=== PATIENT | male | born 1985 | race Caucasian/White ===

== ENCOUNTER 2018-11-26 11:03 | Day surgery (SDC) | payer BC ==
[~2018-11-26 11:03] MED LIST: Buffered Lidocaine 1% SYRIN* 1 ML/SYRINGE INTRADERM ONE; Dexamethasone TAB* 4 MG PO ONE; DiMENhydriNATE IV* 50 MG/ML VIAL IV PUSH PRN; Famotidine IV* 10 MG/ML 2 ML (20 mg) IV ONE; Lactated Ringers 1000 ML Bag* 1,000 ML IV SCH; Morphine 4 MG/ML VIAL (1 ml) 4 MG/ML VIAL IV PRN; Naloxone* 0.4 MG/ML 1 ML VIAL IV PRN; Ondansetron TAB* 4 MG PO ONE; PROCHLORPERAZINE INJ 5 MG/ML 2 ML VIAL IV PRN; Scopolamine 1.5 mg* PATCH TRANSDERM PRN
[2018-11-26] MEDS ORDERED: Ondansetron ODT TAB* 4 MG ONE (11:14)
[2018-11-26] MEDS ORDERED: ceFAZolin 2 GM PREMIX in ORs 2 GM/50 ML BAG IVPB ONE (11:15)
[2018-11-26] MEDS ORDERED: Dexamethasone TAB* 4 MG ONE (11:15)
[2018-11-26] MEDS ORDERED: Famotidine IV* 10 MG/ML 2 ML (20 mg) ONE (11:15)
[2018-11-26] MEDS ORDERED: LORazepam TAB(*) 1 MG PO ONE (12:09)
[2018-11-26] MEDS ORDERED: fentaNYL* 50 MCG/ML 2 ML VIAL (100 MCG VIAL) ONE ×2 (12:35→15:25)
[2018-11-26] MEDS ORDERED: Midazolam* 1 MG/ML 5 ML VIAL (5 MG) ONE (12:35)
[2018-11-26] MEDS ORDERED: KETAMINE HCL* 50 MG/ML 10 ML VIAL ONE (12:35)
[2018-11-26] MEDS ORDERED: Bupivacaine 0.25% SDV PF* 10 ML VIAL INJ ONE (13:25)
[2018-11-26] MEDS ORDERED: Propofol* 10 MG/ML 20 ML BTL ONE (14:00)
[2018-11-26] MEDS ORDERED: Ketorolac INJ* 30 MG/ML 1 ML VIAL ONE (14:00)
[2018-11-26] MEDS ORDERED: PROCHLORPERAZINE INJ 5 MG/ML 2 ML VIAL ONE (14:00)
[2018-11-26] MEDS ORDERED: Lidocaine 2% PF * 5 ML VIAL ONE (14:00)
[2018-11-26] MEDS ORDERED: Morphine 10 MG/ML VIAL (1 ml) ONE (14:19)
--- NOTE | 2018-11-26 15:20 | OP ---
Operative Report - Blank - Operative Report Date of Operation: 11/26/18 Note: PATIENT: Chet Rogers DATE OF : 1985 DATE OF SURGERY: 11/26/2018 SURGEON: Pascual Ruiz MD MANAGER POST: ANTONIA Bustamante, whos assistance was necessary for positioning, retraction, help with instrumentation, and closure. ANESTHESIOLOGIST: Dr. Rodrigez PREOPERATIVE DIAGNOSIS: Left foot ligamentous Lisfranc injury POSTOPERATIVE DIAGNOSIS: Left foot ligamentous Lisfranc injury OPERATION: Left foot open reduction and internal fixation of the Lisfranc and 2 nd TMT joints ANESTHESIA: General IMPLANTS: Arthrex 4.0mm cannulated screw TOURNIQUET TIME: Less than 1 hour with a well-padded thigh tourniquet at 250 mmHg SPECIMENS: none ESTIMATED BLOOD LOSS: minimal COMPLICATIONS: none STATUS: Stable from the operating room to the recovery room and then home. INDICATIONS FOR PROCEDURE: Chet injured his left foot with pain at the Lisfranc, subtle widening on xrays and an MRI showing a Lisfranc ligament tear. Both operative and non operative treatment alternatives were reviewed. Further, the nature and risks of surgery were reviewed in careful detail, in the office as well as the pre-operative holding area. Our discussions regarding the risks of surgery included, but were not limited to, infection, wound problems, nerve injury, neuroma, RSD, persistent symptoms, blood clot, fracture, post-traumatic arthritis, hardware pain, need for further surgery, malunion, nonunion, persistent midfoot instability, failure of the surgery, and even the remote chance of catastrophic complication, including loss of limb. DESCRIPTION OF PROCEDURE: The patient was seen in the preoperative holding unit and informed written consent was obtained. The appropriate extremity was marked. The patient was then brought to the operating room and carefully positioned on the operating room table. Anesthesia was induced. All bony prominences were padded with great care. A chlorhexidine based pre-scrub was performed followed by a chloraprep prep and drape in standard sterile fashion. A surgical safety pause was then conducted in which we confirmed the appropriate patient, extremity, planned procedure, availability of equipment, indication and administration of prophylactic antibiotics, and DVT prophylaxis in the form of a compression boot on the non-surgical extremity. We performed an Esmarch exsanguination of the limb and inflated the tourniquet. I utilized a longitudinal incision centered at the base of the first and second metatarsals. I carefully dissected down through the soft tissues with great care taken to protect the superficial and deep neurovascular structures. The deep neurovascular bundle was visualized and carefully protected throughout the procedure. The Lisfranc joint was exposed and found to be grossly unstable with subluxation at the 2nd TMT joint. No instability at the first TMT or intercuneiform joints were appreciated. Using a small rasp to gently roughen the Lisfranc joint interface. A large pointed reduction clamp was used to reduce the second TMT joint and Lisfranc joint complex. A separate incision was made medially and a guidewire for a 4.0 mm cannulated screw was driven from the medial cuneiform through the base of the second metatarsal under fluoroscopic guidance. This was measured and then overdrilled with a cannulated drill. A 32mm 4.0 mm cannulated screw was then placed over the guidewire. The pointed reduction clamp was then removed and the joints and fracture were held well reduced by the hardware. Fluoroscopy was again used to confirm this and final fluoroscopic images were obtained. At this point, we irrigated copiously and then closed in layers meticulously utilizing 3-0 Monocryl and 3-0 nylon for the skin. A sterile dressing was then applied followed by a splint with the ankle in a neutral position. The patient was then awakened from anesthesia and transferred to the recovery room in stable condition. There were no complications. All needle and sponge counts were correct at the end of the case. ATTESTATION: I attest I was present and scrubbed and performed the critical portions of the procedure myself. POSTOPERATIVE PLAN: Follow up will be in 2 weeks for likely suture removal and postop x-rays.
[2018-11-26] MEDS: fentaNYL* 50 MCG/ML 2 ML VIAL (100 MCG VIAL) IV PRN ×2 (15:26→16:21)
[2018-11-26] MEDS ORDERED: oxyCODONE/Acetamin 5/325 MG* TAB ONE ×2 (15:27→16:26)
[2018-11-26] MEDS: oxyCODONE/Acetamin 5/325 MG* TAB PO PRN ×2 (15:29→16:27)
[2018-11-26 16:11] VITALS: BP 144/85
[2018-11-26] MEDS ORDERED: Scopolamine 1.5 mg* PATCH ONE (17:21)
[2018-11-29] MEDS ORDERED: Scopolamine PATCH Remove* 1 NOTE MISC PATCH OFF ONE (06:06)
== END 2018-11-26 17:27 | disposition home or self-care (01) ==
LOC: OR 11:03
PROVIDERS: ATTEND Orthopaedic Surgery
DX: S93.622A Sprain of tarsometatarsal ligament of left foot, initial encounter (principal); S93.325A Dislocation of tarsometatarsal joint of left foot, initial encounter; X50.0XXA Overexertion from strenuous movement or load, initial encounter; Y93.89 Activity, other specified; Y92.89 Other specified places as the place of occurrence of the external cause
CPT/HCPCS: 76000; A9270-GY; C1713; C1776; J0690; J0780; J1885; J2250; J2270; J2704; J3010; J3490; J8540

== ENCOUNTER → 2019-03-30 07:16 | Day surgery (SDC) | payer BC ==
[~2019-03-30 07:16] MED LIST changes: +Acetaminophen TAB* 325 MG PO PRN; +Bupivacaine 0.5%* 50 ML MDV VIAL ONE; +Dexamethasone IV* 4 MG/ML 1 ML (4 MG) IV SLOW PU ONE; +Dexamethasone IV* 4 MG/ML 1 ML (4 MG) ONE; -Dexamethasone TAB* 4 MG PO ONE; +Famotidine IV* 10 MG/ML 2 ML (20 mg) ONE; +HYDROcodone/ACETAMIN 5-325 MG* 1 TAB PO PRN; +Ketorolac INJ* 30 MG/ML 1 ML VIAL IV PRN; +Lidocaine 1% INJ* 10 MG/ML 30 ML SDV ONE; +Lidocaine 2% PF * 5 ML VIAL ONE; +Lidocaine 2.5%/Prilocain 2.5%* 5 GM TUBE ONE; +Midazolam* 1 MG/ML 5 ML VIAL (5 MG) ONE; -Morphine 4 MG/ML VIAL (1 ml) 4 MG/ML VIAL IV PRN; +Ondansetron INJ* 2 MG/ML VIAL ONE; -Ondansetron TAB* 4 MG PO ONE; -PROCHLORPERAZINE INJ 5 MG/ML 2 ML VIAL IV PRN; +Propofol* 10 MG/ML 20 ML BTL ONE; -Scopolamine 1.5 mg* PATCH TRANSDERM PRN; +ceFAZolin 2 GM in NS PREMIX(*) 2 GM/100 ML BAG IVPB ONE; +fentaNYL* 50 MCG/ML 2 ML VIAL (100 MCG VIAL) IV PRN; +fentaNYL* 50 MCG/ML 2 ML VIAL (100 MCG VIAL) ONE; +oxyCODONE/Acetamin 5/325 MG* TAB PO PRN
[2019-03-30 12:41] VITALS: BP 124/67
--- NOTE | 2019-03-30 15:09 | OP ---
Operative Report - Blank - Operative Report Date of Operation: 03/30/19 Note: PATIENT: Chet Rogers DATE OF : 1985 DATE OF SURGERY: 03/30/2019 SURGEON: Pascual Ruiz MD GEOGRAPHY FACULTY MEMBER: ANTONIA De La Cruz. ANESTHESIOLOGIST: Dr. Stoll PREOPERATIVE DIAGNOSIS: Left foot painful retained hardware POSTOPERATIVE DIAGNOSIS: Left foot painful retained hardware OPERATION: 1. Left foot, removal of implants, deep. 2. Stress fluoroscopy performed by surgeon under anesthesia. ANESTHESIA: General IMPLANTS: Removed 4.0mm cannulated screw TOURNIQUET TIME: none SPECIMENS: none ESTIMATED BLOOD LOSS: minimal COMPLICATIONS: none STATUS: Stable from the operating room to the recovery room and then home. INDICATIONS FOR PROCEDURE: Chet had a prior lisfranc injury ORIF. Both operative and non operative treatment alternatives were reviewed. Further, the nature and risks of surgery were reviewed in careful detail, in the office as well as the pre-operative holding area. Our discussions regarding the risks of surgery included, but were not limited to, infection, wound problems, nerve injury, neuroma, RSD, persistent symptoms, blood clot, need for further surgery, post-traumatic arthritis, failure of the surgery, and even the remote chance of catastrophic complication, including loss of limb. DESCRIPTION OF PROCEDURE: The patient was seen in the preoperative holding unit and informed written consent was obtained. The appropriate extremity was marked. The patient was then brought to the operating room and carefully positioned on the operating room table. Anesthesia was induced. All bony prominences were padded with great care. A chlorhexidine based pre-scrub was performed followed by a chloraprep prep and drape in standard sterile fashion. A surgical safety pause was then conducted in which we confirmed the appropriate patient, extremity, planned procedure, availability of equipment, indication and administration of prophylactic antibiotics, and DVT prophylaxis in the form of a compression boot on the non-surgical extremity. I injected local anesthetic to the area of the prior surgical incision. I utilized the prior medial foot incision. I utilized a small K wire to find the cannulated screw with the assistance of fluoroscopy. Once localized, I utilized blunt dissection down to the level of the hardware. I then utilized a scalpel to sharply expose the screw head. I then removed the screw utilizing a screwdriver without difficulty. Prior to fully removing the screw I performed an external rotation and abduction stress fluoroscopic examination. No instability was appreciated at the Lisfranc articulation. Therefore, I fully removed the screw and a fluoroscopic image was obtained demonstrating removal of hardware. At this point, we irrigated copiously and then closed in layers meticulously utilizing 3-0 Monocryl and 3-0 nylon for the skin. A sterile dressing was then applied. The patient was then awakened from anesthesia and transferred to the recovery room in stable condition. There were no complications. All needle and sponge counts were correct at the end of the case. ATTESTATION: I attest I was present and scrubbed and performed the critical portions of the procedure myself. POSTOPERATIVE PLAN: The plan is to remove the sutures in 2 weeks.
== END | disposition home or self-care (01) ==
LOC: OR 07:16
PROVIDERS: ATTEND Orthopaedic Surgery
DX: T84.84XA Pain due to internal orthopedic prosthetic devices, implants and grafts, initial encounter (principal); Y83.1 Surgical operation with implant of artificial internal device as the cause of abnormal reaction of the patient, or of later complication, without mention of misadventure at the time of the procedure; S93.622D Sprain of tarsometatarsal ligament of left foot, subsequent encounter; Y92.9 Unspecified place or not applicable; F41.8 Other specified anxiety disorders
CPT/HCPCS: 76000; 88300; A9270-GY; J0690; J1100; J2250; J2405; J2704; J3010; J3490